=== PATIENT | male | born 1960 | race American Indian/Alaskan Native ===

== ENCOUNTER 2019-03-04 08:46 | Emergency (ER) | payer OTHER, MEDICAID ==
[2019-03-04] MEDS ORDERED: LORazepam 2 MG/ML VIAL IV ONE ×2 (09:05→09:14)
[2019-03-04] MEDS ORDERED: levETIRAcetam 1000 MG/NS 0.75% 1,000 MG/100 ML BAG IV ONE ×2 (09:05→09:07)
[2019-03-04] MEDS ORDERED: LORazepam 2 MG/ML VIAL ONE (09:07)
[2019-03-04] MEDS ORDERED: PROPOFOL 1,000 MG/100 ML BOTTLE IV ONE (09:23)
[2019-03-04] MEDS ORDERED: SUCCINYLCHOLINE CHLORIDE 200 MG/10 ML INJ MDV ONE (09:27)
[2019-03-04] MEDS ORDERED: ETOMIDATE 20 MG/10 ML INJ IV ONE (09:27)
[2019-03-04] MEDS ORDERED: MINERAL OIL/PETROLATUM, WHITE OPHTH OINT 3.5 GM OU PRN (09:35)
[2019-03-04] MEDS ORDERED: LIP THERAPY VASELINE TP PRN (09:35)
[2019-03-04] MEDS ORDERED: PROPOFOL 1,000 MG/100 ML BOTTLE IV SCH (10:00)
--- NOTE | 2019-03-04 10:13 | XRay Report ---
CHEST 1 VIEW 9:42 AM INDICATION / CLINICAL INFORMATION: ETT placement. Seizure at 4:30 AM morning. COMPARISON: 03/15/2014. FINDINGS: SUPPORT DEVICES: There is an endotracheal tube with the tip 7 cm above the pearl. HEART / MEDIASTINUM: There is mild cardiomegaly. There is mild widening of the superior mediastinum c ompared to the prior study. LUNGS / PLEURA: Lung volumes are low. No acute pulmonary parenchymal or pleural abnormality is seen. No pneumothorax. ADDITIONAL FINDINGS: No significant additional findings. IMPRESSION: 1. Slightly high endotracheal tube position. 2. Mild widening of the superior mediastinum may just be related to portable technique and suboptimal inspiration. Depending on clinical findings, CT of the chest with intravenous contrast may be helpfu l in further evaluation. Signer Name: Aurelio Correa MD Signed: 03/04/2019 10:08 AM Workstation Name: [id number]
--- NOTE | 2019-03-04 10:34 | Cat Scan Report ---
NONENHANCED CT SCAN OF THE BRAIN: INDICATION: neuro deficits <6hrs or sx present upon awakening. TECHNIQUE: Routine CT head without contrast. Sagittal and coronal reformatted images were obtained. A ll CT scans at this location are performed using CT dose reduction for ALARA by means of automated ex posure control. COMPARISON: CT scan of the brain from 09/26/2014 FINDINGS: BRAIN / INTRACRANIAL CONTENTS: Large area of encephalomalacia is seen in the right middle cerebral ar franklyn territory with deep central lateral midline shift. Compensatory enlargement of the third ventric le and right lateral ventricle are seen. Focal areas of dystrophic calcification are seen. Craniotomy changes are seen. Findings in the right cerebral hemisphere findings unchanged. Left cerebral hemisphere is normal. Questionable low density areas seen in the left side of mita. Because of Beam hardening artifacts fro m the temporal bones, unable to confirm this. Wallerian degeneration is seen in the right cerebral pe duncle. Craniocervical junction:No significant abnormality Orbits:No significant abnormality Paranasal sinuses/mastoids:No significant abnormality Additional findings: None IMPRESSION: Right middle cerebral artery territory encephalomalacia I do not see CT findings to suggest acute territorial infarction in the left cerebral hemisphere This exam was performed as part of a code stroke protocol. The exam was completed at [facility] on 03/04/2019 9:21 AM. The exam was reviewed at 9:25 AM Central daylight saving time and Dr. Tavera was notified at at 9:29 AM CDT Signer Name: Meryl Dempsey MD Signed: 03/04/2019 10:30 AM Workstation Name: [id number]
--- NOTE | 2019-03-04 10:36 | Cat Scan Report ---
CT CERVICAL SPINE WITHOUT CONTRAST INDICATION / CLINICAL INFORMATION: unconscious with head injury. Evaluate for cervical spine injury. Intubated patient. TECHNIQUE: Axial CT images were obtained through the cervical spine. Sagittal and coronal reformatted images wer e produced. All CT scans at this location are performed using CT dose reduction for ALARA by means of automated exposure control. COMPARISON: None available. FINDINGS: ALIGNMENT: No significant abnormality. No indication of traumatic subluxation. VERTEBRAE: No indication of fracture. Anterior and mild posterior osteophyte formation is observed at the C5-6 and C6-7 levels. DISC SPACES: Mild loss of disc height is noted at the C5-6 level. INDIVIDUAL LEVEL ANALYSIS: C2-3:No abnormality. C3-4: Bilateral uncovertebral arthropathy. No indication of central canal stenosis or foraminal encro achment. C4-5: No abnormality. C5-6: Mild loss of disc height is noted. Anterior osteophyte formation is observed. Right worse than left uncovertebral arthropathy is present. This is associated with moderate right-sided neuroforamina l stenosis at the C6 nerve root level. C6-7: Anterior osteophyte formation is noted. Central spinal canal and neuroforamina are adequately m aintained. C7-T1: No abnormality. CRANIOCERVICAL JUNCTION:No significant abnormality. SPINAL CANAL: No significant abnormality. PARASPINAL SOFT TISSUES: Endotracheal tube is present tip located well below the level of the true vo katey cords about 5.5 cm above the level of the pearl. LUNG APICES: The lungs are largely excluded from this examination. IMPRESSION: 1. No indication of fracture or traumatic subluxation. 2. Mild degenerative changes as described level by level above. Signer Name: Blade Smith MD Signed: 03/04/2019 10:32 AM Workstation Name: [id number]
[2019-03-04 11:00] LABS: Alanine Aminotransferase 20 units/L (7-56); Albumin 4.6 g/dL (3.9-5); BUN/Creatinine Ratio 9; Blood Urea Nitrogen 11 mg/dL (9-20); Calcium 8.8 mg/dL (8.4-10.2); Hemolysis Index 33
--- NOTE | 2019-03-04 11:02 | Emergency Department Report ---
ED General Adult HPI - General Chief complaint: Seizure Stated complaint: SEIZURE Time Seen by Provider: 03/04/19 09:03 Source: EMS Mode of arrival: Stretcher Limitations: Altered Mental Status, Physical Limitation - History of Present Illness Initial comments: This is a 58-year-old man arrives via EMS actively seizing. The family is not currently present. Information I have from EMS is that the patient was observed to be seizing at about 4:30 in the morning. Seizures are apparently persistent and ultimately EMS was called. Patient right in active ictus. IVC is unable to give any historical information. His airway appeared to be in jeopardy and his breathing was shallow. Therefore he was electively intubated. Later I did discuss the patient's history with his family who stated that he had not had a seizure in quite some time. Patient had apparently fallen and hit his head. He did not fully regain consciousness since the fall. -: During the night Severity scale (0 -10): 0 Consistency: constant - Related Data Home Medications Medication Instructions Recorded Confirmed Last Taken Pantoprazole [Protonix TAB] 40 mg PO DAILY 03/14/14 09/26/14 09/26/14 1 Rosuvastatin Calcium [Crestor] 40 mg PO DAILY 03/14/14 09/26/14 09/26/14 1 Previous Rx's Medication Instructions Recorded Last Taken Type Carvedilol [Coreg] 6.25 mg PO BID #60 tablet 03/22/14 09/26/14 Rx 1 amLODIPine [Norvasc] 10 mg PO DAILY #30 tablet 03/22/14 09/26/14 Rx 1 levETIRAcetam [Keppra] 1,500 mg PO BID #60 tablet 03/22/14 09/26/14 Rx 1 Allergies Allergy/AdvReac Type Severity Reaction Status Date / Time No Known Allergies Allergy Unverified 03/14/14 14:15 ED Review of Systems ROS: Stated complaint: SEIZURE Other details as noted in HPI Comment: Unobtainable due to pts medical conditions ED Past Medical Hx - Past Medical History Previous Medical History?: Yes Hx Hypertension: Yes Hx CVA: Yes (left sided weakness) Hx Congestive Heart Failure: No Hx Diabetes: No Hx Seizures: Yes (once Jan 2014) Hx Asthma: No Hx COPD: No - Surgical History Past Surgical History?: Yes Additional Surgical History: Brain September 2014 - Social History Smoking Status: Unknown if ever smoked - Medications Home Medications: Home Medications Medication Instructions Recorded Confirmed Last Taken Type Pantoprazole [Protonix TAB] 40 mg PO DAILY 03/14/14 09/26/14 09/26/14 History 1 Rosuvastatin Calcium [Crestor] 40 mg PO DAILY 03/14/14 09/26/14 09/26/14 History 1 Carvedilol [Coreg] 6.25 mg PO BID #60 tablet 03/22/14 09/26/14 09/26/14 Rx 1 amLODIPine [Norvasc] 10 mg PO DAILY #30 tablet 03/22/14 09/26/14 09/26/14 Rx 1 levETIRAcetam [Keppra] 1,500 mg PO BID #60 tablet 03/22/14 09/26/14 09/26/14 Rx 1 ED Physical Exam - General Limitations: Altered Mental Status (active ictus), Physical Limitation General appearance: other - Head Head exam: Present: other (left forehead hematoma) - Eye Eye exam: Present: other (conjunctivae gaze deviation to the left) Pupils: Present: other (reactive full-size) - ENT ENT exam: Present: normal exam - Neck Neck exam: Present: normal inspection - Respiratory Respiratory exam: Present: normal lung sounds bilaterally, other (respirations somewhat shallow) - Cardiovascular Cardiovascular Exam: Present: regular rate, normal rhythm. Absent: systolic murmur, diastolic murmur, rubs, gallop - GI/Abdominal GI/Abdominal exam: Present: soft. Absent: distended, tenderness - Extremities Exam Extremities exam: Present: normal inspection - Back Exam Back exam: Present: other (did not examine) - Neurological Exam Neurological exam: Present: other (active exists right sided clonic tonic movements) - Psychiatric Psychiatric exam: Present: other (inapplicable) - Skin Skin exam: Present: abrasion (forehead) ED Course Vital Signs 03/04/19 03/04/19 09:00 10:40 Temperature 99.2 F Pulse Rate 110 H Blood Pressure 157/94 O2 Sat by Pulse 100 Oximetry - Reevaluation(s) Reevaluation #1: Patient was electively intubated without difficulty. He was given 100 mg of propofol as an adoptive agent considering his seizures. He was placed on a propofol drip. The CT. He did have some additional seizure activity in the CT and was given additional probable fall and the drip was titrated. He was given a gram of Keppra. He had already been given benzodiazepines by the EMS squad. 03/04/19 11:10 03/04/19 11:11 Spoke to the toe neurologist. He stated he felt that the patient should be transferred to a neuro intensive care unit for possible continuous EEG monitoring. I spoke to the neuro software licensing executive at every as well as the ICU phys almaz Bravo at [place] [facility] ultimately was the accepting physician. On reexamination the patient's seizures appear to have resolved. Family was counseled as to the reasons for transfer. They were in agreement. - Intubation Time Out Performed: No Sedative: other (propofol) Mg Given: 100 Tube Secured Depth (cm): 23 Tube Secured Location: teeth Tube Placement Confirmation: visualized tube passing t Patient Tolerated Procedure: well Intubation Complications: none Additional Comments: Tube advanced 2 cm. Currently will be at the 24 cm tammy ED Medical Decision Making - Lab Data Result diagrams: 03/04/19 10:28 03/04/19 10:28 Laboratory Results - last 24 hr 03/04/19 03/04/19 03/04/19 10:28 10:28 10:28 WBC TNR RBC TNR Hgb TNR Hct TNR MCV TNR MCH TNR MCHC TNR RDW TNR Plt Count TNR Lymph % (Auto) TNR Ballard % (Auto) TNR Eos % (Auto) TNR Baso % (Auto) TNR Lymph # TNR Ballard # TNR Eos # TNR Baso # TNR Seg Neutrophils % TNR Seg Neutrophils # TNR PT TNR INR TNR APTT TNR Thrombin Time TNR POC ABG pH POC ABG pCO2 POC ABG pO2 POC ABG HCO3 POC ABG Total CO2 POC ABG O2 Sat POC ABG Base Excess FiO2 Sodium 141 Potassium 4.4 Chloride 102.7 Carbon Dioxide 23 Anion Gap 20 BUN 11 Creatinine 1.2 Estimated GFR > 60 BUN/Creatinine Ratio 9 Glucose 95 Calcium 8.8 Total Bilirubin 0.60 Direct Bilirubin < 0.2 Indirect Bilirubin 0.4 AST 28 ALT 20 Alkaline Phosphatase 79 Troponin T 0.056 H Total Protein 8.5 H Albumin 4.6 Albumin/Globulin Ratio 1.2 03/04/19 10:45 WBC RBC Hgb Hct MCV MCH MCHC RDW Plt Count Lymph % (Auto) Ballard % (Auto) Eos % (Auto) Baso % (Auto) Lymph # Ballard # Eos # Baso # Seg Neutrophils % Seg Neutrophils # PT INR APTT Thrombin Time POC ABG pH 7.333 L POC ABG pCO2 43.9 POC ABG pO2 173 H POC ABG HCO3 23.3 POC ABG Total CO2 25 POC ABG O2 Sat 99 POC ABG Base Excess -3 FiO2 50 Sodium Potassium Chloride Carbon Dioxide Anion Gap BUN Creatinine Estimated GFR BUN/Creatinine Ratio Glucose Calcium Total Bilirubin Direct Bilirubin Indirect Bilirubin AST ALT Alkaline Phosphatase Troponin T Total Protein Albumin Albumin/Globulin Ratio Critical Care Time: Yes Critical care time in (mins) excluding proc time.: 90 Critical care attestation.: If time is entered above; I have spent that time in minutes in the direct care of this critically ill patient, excluding procedure time. ED Disposition Clinical Impression: Status epilepticus Respiratory failure Qualifiers: Chronicity: acute Respiratory failure complication: unspecified whether with hypoxia or hypercapnia Qualified Code(s): J96.00 - Acute respiratory failure, unspecified whether with hypoxia or hypercapnia Disposition: DC/TX-70 ANOTHER TYPE HLTHCARE Is pt being admited?: No Does the pt Need Aspirin: Yes Condition: Stable Time of Disposition: 11:17
[2019-03-04 11:03] LABS: Bilirubin,Direct < 0.2 mg/dL (0-0.2)
[2019-03-04 11:06] LABS: Hematocrit TNR % (35.5-45.6); Hemoglobin TNR gm/dl (11.8-15.2); Mean Corpuscular HGB Conc TNR % (32-34); Mean Corpuscular Volume TNR fl (84-94); Red Blood Count TNR M/mm3 (3.65-5.03)
[2019-03-04 11:07] LABS: Basophils % (Auto) TNR % (0.0-1.8); Eosinophils # (Auto) TNR K/mm3 (0.0-0.4); Eosinophils % (Auto) TNR % (0.0-4.3); Lymphocytes # (Auto) TNR K/mm3 (1.2-5.4); Lymphocytes % (Auto) TNR % (13.4-35.0); Monocytes # (Auto) TNR K/mm3 (0.0-0.8); Monocytes % (Auto) TNR % (0.0-7.3); Platelet Count TNR K/mm3 (140-440); Red Cell Distribution Width TNR % (13.2-15.2)
[2019-03-04 11:08] LABS: Basophils # (Auto) TNR K/mm3 (0.0-0.1)
[2019-03-04 11:09] LABS: INR TNR (0.87-1.13); Partial Thromboplastin Time TNR Sec. (24.2-36.6); Thrombin Time TNR Sec. (15.1-19.6)
[2019-03-04 11:47] LABS: Chol/HDL Ratio 3.81 %; HDL Cholesterol 38 mg/dL (40-59); LDL Cholesterol,Direct 96 mg/dL (50-130)
[2019-03-04 11:51] LABS: Bacteria,Urine 1+ /HPF (Negative); Bilirubin,Urine NEG (Negative); Blood,Urine LG (Negative); Color,Urine Yellow (Yellow); Mucus,Urine FEW /HPF; Urobilinogen,Urine < 2.0 mg/dL (<2.0); WBC,Urine < 1.0 /HPF (0.0-6.0)
[2019-03-04 11:55] VITALS: BP 172/102
[2019-03-04] MEDS ORDERED: ASPIRIN 300 MG RECT SUPP PR ONE (12:00)
[2019-03-04 12:07] LABS: Basophils # (Auto) 0.1 K/mm3 (0.0-0.1); Basophils % (Auto) 0.5 % (0.0-1.8); Eosinophils # (Auto) 0.1 K/mm3 (0.0-0.4); Eosinophils % (Auto) 0.5 % (0.0-4.3); Hematocrit 44.5 % (35.5-45.6); Hemoglobin 14.4 gm/dl (11.8-15.2); Lymphocytes # (Auto) 1.9 K/mm3 (1.2-5.4); Lymphocytes % (Auto) 12.1 % (13.4-35.0); Mean Corpuscular HGB Conc 32 % (32-34); Mean Corpuscular Volume 90 fl (84-94); Monocytes # (Auto) 1.3 K/mm3 (0.0-0.8); Monocytes % (Auto) 8.5 % (0.0-7.3); Platelet Count 279 K/mm3 (140-440); Red Blood Count 4.93 M/mm3 (3.65-5.03); Red Cell Distribution Width 13.8 % (13.2-15.2)
[2019-03-04 12:15] LABS: BUN/Creatinine Ratio 9; Blood Urea Nitrogen 10 mg/dL (9-20); Calcium 9.1 mg/dL (8.4-10.2); Hemolysis Index 50
[2019-03-04 12:17] LABS: Albumin 4.2 g/dL (3.9-5)
[2019-03-04 12:18] LABS: Bilirubin,Direct < 0.2 mg/dL (0-0.2)
[2019-03-04 12:21] LABS: INR 1.06 (0.87-1.13)
[2019-03-04 12:30] LABS: Alanine Aminotransferase < 5 units/L (7-56)
== END 2019-03-04 12:30 | disposition other institution (70) ==
LOC: ED 08:46
DX: J96.90 Respiratory failure, unspecified, unspecified whether with hypoxia or hypercapnia (principal); I10 Essential (primary) hypertension; Z86.73 Personal history of transient ischemic attack (TIA), and cerebral infarction without residual deficits; Z98.890 Other specified postprocedural states; Z79.899 Other long term (current) drug therapy
CPT/HCPCS: 31500; 36415; 70450; 71045; 72125; 80048; 80061; 80076; 81001; 82803; 82962; 83690; 84484; 85025; 85610; 87070; 87205; 93005; 93010; 96374; 96375; 96376; 99291; 99292; J0330; J1953; J2060; J2704; 94002